=== PATIENT | female | born 1955 | race Caucasian/White ===

== ENCOUNTER → 2016-10-25 14:26 | Outpatient (CLI) | payer MEDICARE ==
[2014-09-16 10:40] VITALS: BMI 37.0
[~2016-10-25 14:26] MED LIST: AMBIEN10 MG PO; COZAAR100 MG PO; GLUCOPHAGE500 MG PO; HYDRALAZINE HCL50 MG PO; HYDROCHLOROTH12.5 M1 PO; HYDROCODONE-APA1 TAB PO; K-TAB10 MEQ PO; LASIX40 MG PO; LODINE400 MG PO; NEURONTIN600 MG PO; OXYCONTIN20 MG PO; PAXIL20 MG PO; PRAVACHOL40 MG PO; SYNTHROID50 MCG PO; TOPROL XL100 MG PO; TRAZODONE HCL150 MG PO; ZANAFLEX4 MG PO
== END | disposition home or self-care (01) ==
LOC: D.MAMMO 09:15
DX: Z12.31 Encounter for screening mammogram for malignant neoplasm of breast (principal)